=== PATIENT | female | born 1975 | race Caucasian/White ===

== ENCOUNTER 2019-03-14 19:03 | Emergency (ER) | payer SELFPAY ==
[~2019-03-14] VITALS: Ht 157.5 cm; Wt 93.0 kg
[2019-03-14 20:23] VITALS: BP 130/66
[2019-03-14] MEDS ORDERED: HYDROcodone/APAP 5/325MG 1 TAB TABLET PO ONE (20:45)
--- NOTE | 2019-03-14 21:20 | PHYS DOC ---
Past Medical History Past Medical History: No Pertinent History (EDWIN MAN APRN) Past Surgical History: Appendectomy, Cholecystectomy, , Hysterectomy, Tonsillectomy (EDWIN MAN APRN) Alcohol Use: Occasionally Drug Use: None (EDWIN MAN APRN) Adult General Chief Complaint Chief Complaint: ANKLE PROBLEM HPI HPI Patient is a 43 year old female presents for evaluation of left ankle injury. States she rolled the ankle walking down stairs. Denies other injuries. (EDWIN MAN APRN) Review of Systems Review of Systems Constitutional: Denies fever or chills [] Eyes: Denies change in visual acuity, redness, or eye pain [] HENT: Denies nasal congestion or sore throat [] Respiratory: Denies cough or shortness of breath [] Cardiovascular: No additional information not addressed in HPI [] GI: Denies abdominal pain, nausea, vomiting, bloody stools or diarrhea [] : Denies dysuria or hematuria [] Musculoskeletal: Left ankle swelling and tenderness[] Integument: Denies rash or skin lesions [] Neurologic: Denies headache, focal weakness or sensory changes [] Endocrine: Denies polyuria or polydipsia [] All other systems were reviewed and found to be within normal limits, except as documented in this note. (EDWIN MAN APRN) Current Medications Current Medications Current Medications Medications (Trade) Dose Ordered Sig/Julio C Start Time Stop Time Status Last Admin Dose Admin Acetaminophen/ Hydrocodone Bitart (Lortab 5/325) 1 tab 1X ONCE 03/14/19 20:45 03/14/19 20:46 DC 03/14/19 21:29 1 TAB (JOSE VARGAS DO) Allergies Allergies Allergies Coded Allergies Type Severity Reaction Last Updated Verified No Known Drug Allergies 03/14/19 No (JOSE VARGAS DO) Physical Exam Physical Exam Skin: Warm, dry, no erythema, no rash. [] Back: No tenderness, no CVA tenderness. [] Extremities: Left ankle lateral and medial malleolar swelling and tenderness, pulses intact equal and strong, tenderness with range of motion. [] Neurologic: Alert and oriented X 3, normal motor function, normal sensory function, no focal deficits noted. [] Psychologic: Affect normal, judgement normal, mood normal. [] (EDWIN MAN APRN) Current Patient Data Vital Signs Vital Signs Date Time Temp Pulse Resp B/P (MAP) Pulse Ox O2 Delivery O2 Flow Rate FiO2 03/14/19 20:23 98.1 69 18 130/66 (87) 100 Room Air 98.1 (JOSE VARGAS DO) EKG EKG [] (EDWIN MAN APRN) Radiology/Procedures Radiology/Procedures [] (EDWIN MAN APRN) Radiology/Procedures PROCEDURE: ANKLE LEFT 3V ANKLE LEFT 3V History: LEFT MEDIAL ANKLE PAIN AND SWELLING AFTER FALL TONIGHT.. There is soft tissue swelling at the lateral ankle. There is a tiny linear bone density just distal to the lateral malleolus, most likely a very small avulsion fracture. No other fracture is identified. Alignment and joint spaces appear intact. There is evidence of a tibiotalar joint effusion. Plantar calcaneal enthesophyte is identified. IMPRESSION: 1. Findings compatible with a very small avulsion type fracture of the distal tip of the lateral malleolus. Electronically signed by: Jose La MD (03/14/2019 9:49 PM) [facility] (JOSE VARGAS DO) Impressions: PROCEDURE: ANKLE LEFT 3V ANKLE LEFT 3V History: LEFT MEDIAL ANKLE PAIN AND SWELLING AFTER FALL TONIGHT.. There is soft tissue swelling at the lateral ankle. There is a tiny linear bone density just distal to the lateral malleolus, most likely a very small avulsion fracture. No other fracture is identified. Alignment and joint spaces appear intact. There is evidence of a tibiotalar joint effusion. Plantar calcaneal enthesophyte is identified. IMPRESSION: 1. Findings compatible with a very small avulsion type fracture of the distal tip of the lateral malleolus. (EDWIN MAN APRN) Course & Med Decision Making Course & Med Decision Making Pertinent Labs and Imaging studies reviewed. (See chart for details) [X-ray of left ankle is negative, preliminary read by myself and Dr. Vargas. Patient is placed in Cordell wrap and crutches, referred for orthopedic follow-up.] Ankle x-ray read by radiology after patient has been discharged, and a density distal to the lateral malleolus may be a tiny avulsion fracture, patient has been given referral information for orthopedics, is on crutches, weightbearing as tolerated and will follow up with orthopedic. Dr. Vargas and I again reviewed the ankle x-ray after radiology read, he agrees with above plan and care. (EDWIN MAN APRN) Dragon Disclaimer Dragon Disclaimer This electronic medical record was generated, in whole or in part, using a voice recognition dictation system. (EDWIN MAN APRN) Splinting Splinting : Location: Left ankle Pre-Made Type: CORDELL bandage Pre-Proc Neuro Vasc Exam: normal Post-Proc Neuro Vasc Exam: normal, unchanged from pre-exam (JOSE VARGAS DO) Departure Departure Impression: Primary Impression: Ankle sprain Disposition: HOME, SELF-CARE Condition: STABLE Referrals: NO PCP (PCP) TAHMINA JOHNSON MD Patient Instructions: Ankle Sprain Attending Signature Attending Signature I have reviewed the PA/CLEARANCE COORDINATOR's note and plan of care. I was available for consultation as needed during the patient's visit in the emergency department. I agree with the clinical impression, plan, and disposition. (JOSE VARGAS DO) Problem Qualifiers Primary Impression: Ankle sprain Encounter type: initial encounter Involved ligament of ankle: unspecified ligament Laterality: left Qualified Codes: S93.402A - Sprain of unspecified ligament of left ankle, initial encounter EDWIN MAN APRN Mar 14, 2019 21:20 JOSE VARGAS DO March 17, 2019 02:58
--- NOTE | 2019-03-14 21:51 | RAD ---
ANKLE LEFT 3V History: LEFT MEDIAL ANKLE PAIN AND SWELLING AFTER FALL TONIGHT.. There is soft tissue swelling at the lateral ankle. There is a tiny linear bone density just distal to the lateral malleolus, most likely a very small avulsion fracture. No other fracture is identified. Alignment and joint spaces appear intact. There is evidence of a tibiotalar joint effusion. Plantar calcaneal enthesophyte is identified. IMPRESSION: 1. Findings compatible with a very small avulsion type fracture of the distal tip of the lateral malleolus. Electronically signed by: Jose La MD (03/14/2019 9:49 PM) [facility]
== END 2019-03-14 21:35 | disposition home or self-care (01) ==
LOC: ER 19:03
DX: S93.492A Sprain of other ligament of left ankle, initial encounter (principal); Z90.89 Acquired absence of other organs; Z90.49 Acquired absence of other specified parts of digestive tract; Z98.890 Other specified postprocedural states; Z90.710 Acquired absence of both cervix and uterus; X50.1XXA Overexertion from prolonged static or awkward postures, initial encounter; Y93.01 Activity, walking, marching and hiking; Y92.89 Other specified places as the place of occurrence of the external cause; Y99.8 Other external cause status
CPT/HCPCS: 73610; 99284